=== PATIENT | male | born 1950 | race Caucasian/White ===

== ENCOUNTER → 2019-04-18 10:21 | Outpatient (CLI) | payer MEDICARE, OTHER, SELFPAY ==
--- NOTE | 2019-04-18 | DI.CT.S_ITS ---
PROCEDURE: CT CHEST WO CON INDICATIONS: Hemoptysis TECHNIQUE: Noncontrast 5 mm thick sections acquired from the pulmonary apices to the posterior costophrenic angles. 1 mm lung window, 5 mm thick coronal and sagittal and 7 mm axial MIP reformats were then acquired. For radiation dose reduction, the following was used: automated exposure control, adjustment of mA and/or kV according to patient size. COMPARISON: [facility], CR, XR CHEST 2 VIEWS, 04/01/2019, 13:25. FINDINGS: Image quality: Excellent. Lungs and pleura: The spiculated, vertically oriented and somewhat linear patch of airspace opacity posterior medial right lower lobe towards the lung base is present. Slight traction bronchiectasis and air bronchograms in this region. Linear extension to the medial and inferior pleural surfaces. No discrete central masslike solid component. Mild atelectatic changes present medially in the right middle lobe. Occasional left lower lobe posterior lateral thin-walled parenchymal cysts. Lungs are otherwise clear. No pleural effusions or pneumothorax. Central and peripheral airways are otherwise patent and normal in caliber. Mediastinum: Heart size is normal. No pericardial effusion. No mediastinal adenopathy by size criteria. Thoracic aorta and central pulmonary arteries are normal in size. Esophagus is normal in caliber. No hiatal hernia. Bones and chest wall: No suspicious bony lesions. No vertebral body compression fractures. No axillary or supraclavicular adenopathy by size criteria. Thyroid gland is is normal. Abdomen: Visualized upper abdominal solid organs and bowel loops appear normal in the absence of contrast. IMPRESSION: 1. Small patchy/strandy airspace opacity at the posterior medial right lung base. This is most likely infectious, inflammatory, less likely sequela of aspiration. Neoplasm is not excluded. One month followup chest CT is recommended to assess for resolution. 2. No mediastinal or axillary adenopathy. Dictated by: Kristi Amaya M.D. on 04/18/2019 at 14:06 Approved by: Kristi Amaya M.D. on 04/18/2019 at 14:31
== END ==
PROVIDERS: PCP Internal Medicine; Visit Provider Student in an Organized Health Care Education/Training Program
DX: R04.2 Hemoptysis (principal)
CPT/HCPCS: 71250

== ENCOUNTER → 2020-02-27 07:53 | Outpatient (CLI) | payer MEDICARE, OTHER, SELFPAY ==
[2020-02-27 08:41] LABS: Add Manual Diff / Slide Review NO; Basophils Absolute Auto 100 /uL (0-100); Basophils Percent Auto 1.2 % (0-2); Eosinophils Absolute Auto 200 /uL (0-450); Eosinophils Percent Auto 3.1 % (2-4); Hematocrit 38.9 % (41-53); Hemoglobin 13.1 g/dL (13.5-17.5); Lymphocytes Absolute Auto 1500 /uL (1100-4500); Lymphocytes Percent Auto 24.2 % (25-40); Mean Corpuscular HGB Conc 33.7 % (30-36); Mean Corpuscular Hemoglobin 28.7 PG (26-34); Mean Corpuscular Volume 85.2 fL (80-100); Monocytes Absolute Auto 500 /uL (0-900); Monocytes Percent Auto 7.3 % (3-14); Neutrophils Absolute Auto 4000 /uL (1500-7000); Neutrophils Percent Auto 64.2 % (50-75); Platelet Count 261 X10^3/uL (150-400); Red Blood Cell Count 4.57 X10^6/uL (4.5-5.9); Red Cell Distribution Width 14.4 % (11.6-14.8); White Blood Cell Count 6.2 X10^3/uL (4.5-11.0)
[2020-02-27 09:12] LABS: Alanine Aminotransferase 11 IU/L (<50); Albumin 3.9 g/dL (3.5-5.0); Albumin Globulin Ratio 1.4 (1.0-2.8); Alkaline Phosphatase 59 U/L (38-126); Aspartate Aminotransferase 20 IU/L (17-59); BUN Creatinine Ratio 32.5 (6-22); Bilirubin Total 0.3 mg/dL (0.2-1.3); Blood Urea Nitrogen 27 mg/dL (9-20); Carbon Dioxide 30 mmol/L (22-32); Chloride 106 mmol/L (98-107); Cholesterol 223 mg/dL (140-199); Estimated Glomerular Filt Rate > 60.0 mL/min (>60); Globulin 2.7 g/dL (1.7-4.1); Glucose 191 mg/dL (80-110); HDL Cholesterol 50 mg/dL (40-60); HEMOLYSIS < 15 (0-50); Hemoglobin A1C% w Est Avg Glu 11.4 % (4.0-6.0); LDL Cholesterol Calculated 151 mg/dL (<100); Magnesium 1.9 mg/dL (1.6-2.3); Potassium 3.7 mmol/L (3.4-5.1); Sodium 140 mmol/L (137-145); Total Protein 6.6 g/dL (6.3-8.2); Triglycerides 108 mg/dL (35-150)
[2020-02-27 09:34] LABS: Creatinine Urine Random 153.3 mg/dL; Protein (Total) Urine Random 10 mg/dL (0-12); Protein Creatinine Ratio Urine 0.06 GRAM/24H
== END ==
PROVIDERS: PCP Internal Medicine; Referring Provider Internal Medicine; Visit Provider Internal Medicine
DX: I10 Essential (primary) hypertension (principal); E11.9 Type 2 diabetes mellitus without complications
CPT/HCPCS: 36415; 80053; 80061; 82570; 83036; 83735; 84156; 85025

== ENCOUNTER → 2020-03-19 18:57 | Outpatient (ROUT) | payer MEDICARE, OTHER, SELFPAY ==
[2020-03-19 19:10] LABS: HEMOLYSIS < 15 (0-50); Iron 64 ug/dL (49-181)
[2020-03-19 19:20] LABS: Percent Iron Saturation 25 % (20-50); Total Iron Binding Capacity 251 ug/dL (261-462); Transferrin 188 mg/dL (206-381)
[2020-03-19 19:45] LABS: Ferritin 166 ng/mL (18-464)
== END ==
PROVIDERS: PCP Internal Medicine; Visit Provider Internal Medicine
DX: D64.9 Anemia, unspecified (principal)
CPT/HCPCS: 82728; 83540; 83550